=== PATIENT | male | born 1980 | race African-American/Black ===

== ENCOUNTER 2017-04-09 11:12 | Emergency (ER) | END 2017-04-09 13:30 | disposition home or self-care (01) ==

== ENCOUNTER 2017-05-25 21:33 | Emergency (ER) | END 2017-05-25 23:50 | disposition home or self-care (01) ==

== ENCOUNTER 2017-10-24 14:20 | Emergency (ER) | END 2017-10-24 19:21 | disposition left against medical advice (07) ==

== ENCOUNTER 2017-11-16 04:45 | Emergency (ER) | END 2017-11-16 17:25 | disposition short-term general hospital (02) ==

== ENCOUNTER 2017-11-17 22:09 | Inpatient (IN) | END 2017-11-20 16:34 | disposition home or self-care (01) | DRG 247 ==

== ENCOUNTER 2017-12-14 12:18 | Emergency (ER) | END 2017-12-14 14:51 | disposition left against medical advice (07) ==

== ENCOUNTER 2018-02-26 17:03 | Emergency (ER) | END 2018-02-26 18:48 | disposition left against medical advice (07) ==